=== PATIENT | female | born 1960 | race African-American/Black ===

== ENCOUNTER 2016-11-15 01:27 | Emergency (ER) | payer MEDICAID ==
[~2016-11-15] VITALS: Wt 138.0 kg
[2016-11-15] MEDS ORDERED: HYDROCODONE/APAP (5/325) TAB PO ONE (03:00)
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
[2016-11-15] MEDS ORDERED: HYDR-906 PO (04:30)
[2016-11-15] MEDS ORDERED: CYCL-319 PO (04:30)
[2016-11-15] MEDS ORDERED: IBUP-1542 PO (04:30)
== END 2016-11-15 05:14 | disposition home or self-care (01) ==
LOC: FTE 01:27
DX: S46.911A Strain of unspecified muscle, fascia and tendon at shoulder and upper arm level, right arm, initial encounter (principal); S16.1XXA Strain of muscle, fascia and tendon at neck level, initial encounter; I10 Essential (primary) hypertension; V49.9XXA Car occupant (driver) (passenger) injured in unspecified traffic accident, initial encounter
CPT/HCPCS: 73030; Z7502; Z7610